=== PATIENT | female | born 1930 | race Caucasian/White ===

== ENCOUNTER 2017-05-29 06:46 | Observation (INO) | payer OTHER ==
[~2017-05-29] VITALS: Ht 160 cm; Wt 75.0 kg
[2017-05-29 06:54] VITALS: BP 152/65; PULSE 71; RESP 18; TEMP 97.6; O2SAT 97
[2017-05-29] MEDS ORDERED: LABE200T2 PO (07:02)
[2017-05-29] MEDS ORDERED: SIMV10TA PO (07:02)
[2017-05-29] MEDS ORDERED: LISI-515 PO (07:02)
[2017-05-29] MEDS ORDERED: FERR325T8 PO (07:02)
[2017-05-29] MEDS ORDERED: AMLO10TA2 PO (07:02)
[2017-05-29 07:24] LABS: AUTOMATED NEUTROPHIL # 5.6 TH/MM3 (1.8-7.7); BASOPHIL # 0.1 TH/MM3 (0-0.2); BASOPHIL % 0.5 % (0.0-2.0); EOSINOPHIL # 0.2 TH/MM3 (0-0.4); EOSINOPHIL % 1.6 % (0.0-4.0); HEMATOCRIT 35.7 % (35.0-46.0); LYMPH % 47.3 % (9.0-44.0); LYMPHOCYTE # 5.8 TH/MM3 (1.0-4.8); MEAN CELL VOLUME 88.8 FL (80.0-100.0); MEAN CORPUSCULAR HGB CONC 32.7 % (32.0-36.0); MONO % 5.1 % (0.0-8.0); NEUT % 45.5 % (16.0-70.0); PLATELET COUNT 205 TH/MM3 (150-450); RED BLOOD COUNT 4.02 MIL/MM3 (4.00-5.30); WHITE BLOOD COUNT 12.3 TH/MM3 (4.0-11.0)
[2017-05-29 07:35] LABS: HEMO FLAGS AUTO DIFF
[2017-05-29 07:39] LABS: ANION GAP 4 MEQ/L (5-15); BICARBONATE 28.9 MEQ/L (21.0-32.0); BLOOD UREA NITROGEN 9 MG/DL (7-18); CHLORIDE 108 MEQ/L (98-107); GLOMERULAR FILTRATION RATE 74 ML/MIN (>89); POTASSIUM 3.9 MEQ/L (3.5-5.1); SODIUM (NA) 141 MEQ/L (136-145)
[2017-05-29 07:44] LABS: CREATINE KINASE 89 U/L (26-192)
[2017-05-29] MEDS ORDERED: ASPIRIN 325 MG TAB PO ONE (07:45)
--- NOTE | 2017-05-29 07:46 | RADRPT ---
EXAM DATE/TIME: 05/29/2017 07:36 [place] COMPARISON: No previous studies available for comparison. INDICATIONS : Chest pain MEDICAL HISTORY : A-fib SURGICAL HISTORY : None. ENCOUNTER: Initial ACUITY: 1 day PAIN SCORE: 4/10 LOCATION: chest FINDINGS: Cardiomegaly. Clear lungs. Osseous structures are intact. CONCLUSION: Cardiomegaly. Clear lungs. Cameron Sales MD on May 29, 2017 at 7:44 Board Certified Radiologist. This report was verified electronically.
[2017-05-29 08:37] LABS: ATYPICAL LYMPHOCYTES 9 % (0-0); BANDS 1 % (0-6); EOSINOPHILS 3 % (0-4); NEUTROPHIL # MANUAL DIFF 5.7 TH/MM3 (1.8-7.7); POLYS (SEG NEUTROPHILS) 45 % (16-70); WBC DIFF SAMPLE 100
[2017-05-29 08:39] LABS: PLATELET ESTIMATE SMEAR NORMAL (NORMAL); PLATELET MORPHOLOGY NORMAL (NORMAL); SCAN/DIFF FINAL DIFF MANUAL; SMUDGE CELLS PRESENT PRESENT
[2017-05-29 10:29] VITALS: BP 172/71; PULSE 69; RESP 17; O2SAT 97
[2017-05-29 10:37] LABS: CREATINE KINASE 77 U/L (26-192)
[2017-05-29 11:18] VITALS: BP 156/69; PULSE 62; RESP 17; TEMP 98.6; O2SAT 94
--- NOTE | 2017-05-29 11:27 | PD ---
HPI Chief Complaint: Chest Pain Time Seen by Provider: 07:26 Travel History International Travel<30 days: No Contact w/Intl Traveler<30days: No Traveled to known affect area: No History of Present Illness HPI 86 F arrives with chest pain. It started about 3 AM. She arrives here at 7 AM. Location is left lower chest. No radiation. No pleuritic pain, shortness of breath or fever. Patient has multiple family members with coronary artery disease. + Hx atrial fibrillation. + HTN. No diabetes. No personal hx CAD. Pt denies similar prior episodes. She reports normal state of health lately. [facility] Past Medical History Anemia: Yes Heart Rhythm Problems: Yes High Cholesterol: Yes Hypertension: Yes Tetanus Vaccination: Unknown Influenza Vaccination: No Social History Alcohol Use: No Tobacco Use: No Substance Use: No Allergies-Medications (Allergen,Severity, Reaction): Coded Allergies: No Known Allergies (Unverified , 05/29/17) Reported Meds & Prescriptions Reported Meds & Active Scripts Active Reported Simvastatin 10 Mg Tab 10 Mg PO DAILY Labetalol (Labetalol HCl) 200 Mg Tab 200 Mg PO BID Amlodipine (Amlodipine Besylate) 10 Mg Tab 10 Mg PO DAILY Lisinopril 20 Mg Tab 20 Mg PO DAILY Ferrous Sulfate 325 Mg (65 Mg Iron) Tablet 325 Mg PO DAILY Review of Systems Except as stated in HPI: all other systems reviewed are Neg General / Constitutional: No: Fever Cardiovascular: Positive: Chest Pain or Discomfort Physical Exam Narrative GENERAL: 86 yo F, mild distress 2/2 pain and/or anxiety SKIN: Warm and dry. HEAD: Atraumatic. Normocephalic. EYES: Pupils equal and round. No scleral icterus. No injection or drainage. ENT: No nasal bleeding or discharge. Mucous membranes pink and moist. NECK: Trachea midline. No JVD. CARDIOVASCULAR: Regular rate and rhythm. RESPIRATORY: No accessory muscle use. Clear to auscultation. Breath sounds equal bilaterally. GASTROINTESTINAL: Abdomen soft, non-tender, nondistended. Hepatic and splenic margins not palpable. MUSCULOSKELETAL: Extremities without clubbing, cyanosis, or edema. No obvious deformities. No evidence DVT. NEUROLOGICAL: Awake and alert. No obvious cranial nerve deficits. Motor grossly within normal limits. Five out of 5 muscle strength in the arms and legs. Normal speech. PSYCHIATRIC: Appropriate mood and affect; insight and judgment normal. Data Data Last Documented VS Vital Signs Date Time Temp Pulse Resp B/P (MAP) Pulse Ox O2 Delivery O2 Flow Rate FiO2 05/29/17 06:54 97.6 71 18 152/65 (94) 97 Orders Orders Electrocardiogram (05/29/17 07:03) Complete Blood Count With Diff (05/29/17 07:03) Basic Metabolic Panel (Bmp) (05/29/17 07:03) Ckmb (Isoenzyme) Profile (05/29/17 07:03) Troponin I (05/29/17 07:03) Chest, Single Ap (05/29/17 07:03) Iv Access Insert/Monitor (05/29/17 07:03) Ecg Monitoring (05/29/17 07:03) Oxygen Administration (05/29/17 07:03) Oximetry (05/29/17 07:03) Aspirin (Aspirin) (05/29/17 07:45) Admit Order (Ed Use Only) (05/29/17 09:32) Labs Laboratory Tests Test 05/29/17 07:05 White Blood Count 12.3 TH/MM3 Red Blood Count 4.02 MIL/MM3 Hemoglobin 11.7 GM/DL Hematocrit 35.7 % Mean Corpuscular Volume 88.8 FL Mean Corpuscular Hemoglobin 29.0 PG Mean Corpuscular Hemoglobin Concent 32.7 % Red Cell Distribution Width 14.0 % Platelet Count 205 TH/MM3 Mean Platelet Volume 8.3 FL Neutrophils (%) (Auto) 45.5 % Lymphocytes (%) (Auto) 47.3 % Monocytes (%) (Auto) 5.1 % Eosinophils (%) (Auto) 1.6 % Basophils (%) (Auto) 0.5 % Neutrophils # (Auto) 5.6 TH/MM3 Lymphocytes # (Auto) 5.8 TH/MM3 Monocytes # (Auto) 0.6 TH/MM3 Eosinophils # (Auto) 0.2 TH/MM3 Basophils # (Auto) 0.1 TH/MM3 CBC Comment AUTO DIFF Differential Total Cells Counted 100 Neutrophils % (Manual) 45 % Band Neutrophils % 1 % Lymphocytes % 37 % Monocytes % 5 % Eosinophils % 3 % Neutrophils # (Manual) 5.7 TH/MM3 Differential Comment FINAL DIFF MANUAL Atypical Lymphocytes 9 % Smudge Cells PRESENT Platelet Estimate NORMAL Platelet Morphology Comment NORMAL Red Cell Morphology Comment NORMAL Blood Urea Nitrogen 9 MG/DL Creatinine 0.75 MG/DL Random Glucose 120 MG/DL Calcium Level 8.8 MG/DL Sodium Level 141 MEQ/L Potassium Level 3.9 MEQ/L Chloride Level 108 MEQ/L Carbon Dioxide Level 28.9 MEQ/L Anion Gap 4 MEQ/L Estimat Glomerular Filtration Rate 74 ML/MIN Total Creatine Kinase 89 U/L Troponin I LESS THAN 0.02 NG/ML MDM Medical Decision Making Medical Screen Exam Complete: Yes Emergency Medical Condition: Yes Medical Record Reviewed: Yes Differential Diagnosis EKG: atrial fbrillation, rate 59, no ischemic injury pattern Last 24 hours Impressions Chest X-Ray 05/29/17702 Signed Impressions: Service Date/Time: May 07:36 - CONCLUSION: Cardiomegaly. Clear lungs. Cameron Sales MD CBC & BMP Diagram 05/29/17 07:05 Narrative Course CBC & BMP Diagram 05/29/17 07:05 Calcium Level 8.8 Tn < 0.02 EKG: a fib, rate 59, no acute ischemia Last 24 hours Impressions Chest X-Ray 05/29/17702 Signed Impressions: Service Date/Time: May 07:36 - CONCLUSION: Cardiomegaly. Clear lungs. Cameron Sales MD [employer] protocol consider next most reasonable step for this patient. Pt agreeable with plan. Diagnosis Primary Impression: Chest pain Qualified Codes: R07.9 - Chest pain, unspecified Admitting Information Admitting Physician Requests: Jose Fong MD May 29, 2017 11:27
--- NOTE | 2017-05-29 13:33 | HHI.HP ---
[facility] Primary Care Physician Dr. Cedeno Chief Complaint Dizziness and irregular heart rate History of Present Illness 86-year-old female with history of hypertension, hyperlipidemia, and A. fib presents to emergency room for further evaluation of dizziness and her "heart not beating right." States she has not been able to sleep the last few nights. Again last evening was unable to sleep and then at 3 AM she became dizzy and felt as though her heart was not beating right. Duration 7-8 hours. Denied any chest pain, discomfort, or pressure. No associated symptoms of nausea, vomiting , shortness, or diarrhea. No precipitating or relieving factors. Reports now she feels completely fine and is requesting to be discharged home. Review of Systems General: No fatigue,weakness, fever, chills, recent illness, or change in appetite. Has been in her general state of health. Living with her sister the last 6 months, recently moved from [place], [place]. Establish with a primary care provider 2 weeks ago, Dr. Cedeno, and given a "blood thinner." Did not tack picker prescription stating "I did not want to take another pill." HEENT: No SKAGGS CV: No CP, pressure, or discomfort. No Palpitations. Dizziness has resolved. RESP: No SOB or cough. GI: No nausea, vomiting, or bowel changes. : No dysuria EXT: No lower leg edema MS: No discomfort or change in ROM NEURO: No difficulty with balance, LOC, motor/sensory deficits PSYCH: No anxiety, depression, or situational stress SKIN: No rashes, no concerning lesions Past Family Social History Allergies: Coded Allergies: No Known Allergies (Unverified , 05/29/17) Past Medical History Hypertension, hyperlipidemia, anemia, A. fib Past Surgical History Bilateral knee replacements Reported Medications Reported Meds & Active Scripts Active Reported Simvastatin 10 Mg Tab 10 Mg PO DAILY Labetalol (Labetalol HCl) 200 Mg Tab 200 Mg PO BID Amlodipine (Amlodipine Besylate) 10 Mg Tab 10 Mg PO DAILY Lisinopril 20 Mg Tab 20 Mg PO DAILY Ferrous Sulfate 325 Mg (65 Mg Iron) Tablet 325 Mg PO DAILY Family History Sister-cardiac stent at age 60, Sister age 74 blot clot, x3 brothers from CAD at ages 60, 69, 78. Both parents from heart failure. Social History Known hypertension and hyperlipidemia. No known diabetes or personal coronary artery disease. Lifelong nonsmoker. Denies any alcohol. Lives with sister. Moved from [place], [place] months ago. Past Cardiac testing Chemical stress test "years ago." Physical Exam Vital Signs Vital Signs Date Time Temp Pulse Resp B/P (MAP) Pulse Ox O2 Delivery O2 Flow Rate FiO2 05/29/17 11:18 98.6 62 17 156/69 (98) 94 05/29/17 10:29 69 17 172/71 (104) 97 Room Air 05/29/17 06:54 97.6 71 18 152/65 (94) 97 Physical Exam GENERAL: Alert WN, WD, NAD, pleasant, elderly female HEAD: NC, AC CV: Regular irregular rate, without murmur, rub, gallop, no JVD, S1-S2 no S3- S4. RESP: Clear lungs throughout bilateral, no crackles, wheeze, rhonchi, symmetrical chest rise, nonlabored, able to speak in full sentences ABD: Soft, NT, ND, no masses, positive bowel tones EXT: Pulses +24, no dependent edema MS: Normal tone 4 extremities, nontender, no obvious deformities, full range of motion NEURO: CN II through CN XII grossly intact, motor strength 5/5 PSYCH: A+Ox3, forgetfulness noted, pleasant affect, appropriate speech, appropriate mood and affect, insight and judgment SKIN: Normal turgor, normal texture, no lesions, no rashes Laboratory Laboratory Tests Test 05/29/17 07:05 05/29/17 10:00 White Blood Count 12.3 Red Blood Count 4.02 Hemoglobin 11.7 Hematocrit 35.7 Mean Corpuscular Volume 88.8 Mean Corpuscular Hemoglobin 29.0 Mean Corpuscular Hemoglobin Concent 32.7 Red Cell Distribution Width 14.0 Platelet Count 205 Mean Platelet Volume 8.3 Neutrophils (%) (Auto) 45.5 Lymphocytes (%) (Auto) 47.3 Monocytes (%) (Auto) 5.1 Eosinophils (%) (Auto) 1.6 Basophils (%) (Auto) 0.5 Neutrophils # (Auto) 5.6 Lymphocytes # (Auto) 5.8 Monocytes # (Auto) 0.6 Eosinophils # (Auto) 0.2 Basophils # (Auto) 0.1 CBC Comment AUTO DIFF Differential Total Cells Counted 100 Neutrophils % (Manual) 45 Band Neutrophils % 1 Lymphocytes % 37 Monocytes % 5 Eosinophils % 3 Neutrophils # (Manual) 5.7 Differential Comment FINAL DIFF MANUAL Atypical Lymphocytes 9 Smudge Cells PRESENT Platelet Estimate NORMAL Platelet Morphology Comment NORMAL Red Cell Morphology Comment NORMAL Blood Urea Nitrogen 9 Creatinine 0.75 Random Glucose 120 Calcium Level 8.8 Sodium Level 141 Potassium Level 3.9 Chloride Level 108 Carbon Dioxide Level 28.9 Anion Gap 4 Estimat Glomerular Filtration Rate 74 Total Creatine Kinase 89 77 Troponin I LESS THAN 0.02 LESS THAN 0.02 Result Diagram: 05/29/1770405/29/17704 Imaging Last Impressions Chest X-Ray 05/29/17702 Signed Impressions: Service Date/Time: May 07:36 - CONCLUSION: Cardiomegaly. Clear lungs. Cameron Sales MD Course EKG A. fib, no st t segment changes Caprini VTE Risk Assessment Caprini VTE Risk Assessment: Mod/High Risk (score >= 2) Caprini Risk Assessment Model Point Value = 1 Point Value = 2 Point Value = 3 Point Value = 5 Age 41-60 Minor surgery BMI > 25 kg/m2 Swollen legs Varicose veins or History of unexplained or recurrent spontaneous Oral contraceptives or hormone replacement Sepsis (< 1 month) Serious lung disease, including pneumonia (< 1 month) Abnormal pulmonary function Acute myocardial infarction Congestive heart failure (< 1 month) History of inflammatory bowel disease Medical patient at bed rest Age 61-74 Arthroscopic surgery Major open surgery (> 45 min) Laparoscopic surgery (> 45 min) Malignancy Confined to bed (> 72 hours) Immobilizing plaster cast Central venous access Age >= 75 History of VTE Family history of VTE Factor V Leiden Prothrombin [id number] Lupus anticoagulant Anticardiolipin antibodies Elevated serum homocysteine Heparin-induced thrombocytopenia Other congenital or acquired thrombophilia Stroke (< 1 month) Elective arthroplasty Hip, pelvis, or leg fracture Acute spinal cord injury (< 1 month) Prophylaxis Regimen Total Risk Factor Score Risk Level Prophylaxis Regimen 0-1 Low Early ambulation 2 Moderate Order ONE of the following: *Sequential Compression Device (SCD) *Heparin 5000 units SQ BID 3-4 Higher Order ONE of the following medications: *Heparin 5000 units SQ TID *Enoxaparin/Lovenox 40 mg SQ daily (WT < 150 kg, CrCl > 30 mL/min) *Enoxaparin/Lovenox 30 mg SQ daily (WT < 150 kg, CrCl > 10-29 mL/min) *Enoxaparin/Lovenox 30 mg SQ BID (WT < 150 kg, CrCl > 30 mL/min) AND/OR *Sequential Compression Device (SCD) 5 or more Highest Order ONE of the following medications: *Heparin 5000 units SQ TID (Preferred with Epidurals) *Enoxaparin/Lovenox 40 mg SQ daily (WT < 150 kg, CrCl > 30 mL/min) *Enoxaparin/Lovenox 30 mg SQ daily (WT < 150 kg, CrCl > 10-29 mL/min) *Enoxaparin/Lovenox 30 mg SQ BID (WT < 150 kg, CrCl > 30 mL/min) AND *Sequential Compression Device (SCD) Assessment and Plan Assessment and Plan #1 Dizziness- Admitted to chest pain center. Ruled out with 3 sets of EKGs, cardiac enzymes, and monitored overnight. Seen and evaluated by Dr. Fuad Ocasio. Dizziness and feeling of irregular heart beat has resolved, continues to be chest pain free. No further cardiac testing required. Known history of afib. Discharge home this afternoon. Follow up PCP. Return to ER as needed for any further concerns. #2 History of A. fib-encouraged her to start taking anticoagulation as prescribed by her primary care provider. Telemetry reviewed, no rapid ventricular response seen. Education provided on risk of stroke with not taking anticoagulation therapy This is also been discussed with her sister at bedside. They're both agreeable to plan of care and report they will tack picker medication at the pharmacy on the way home. Continue labetalol. #3 Hypertension-continue amlodipine and lisinopril #4 Hyperlipidemia-continue simvastatin Batool Hernandez May 29, 2017 13:33
[2017-05-29] MEDS ORDERED: LABETALOL HCL 200 MG TAB PO SCH (15:00)
[2017-05-29] MEDS ORDERED: FERROUS SULFATE 325 MG (65 MG ELEMENTAL IRON) TAB PO SCH (15:00)
[2017-05-29] MEDS ORDERED: LISINOPRIL 20 MG TAB PO SCH (15:00)
[2017-05-29 15:02] VITALS: BP 188/75; PULSE 70; RESP 20; TEMP 99; O2SAT 97
--- NOTE | 2017-05-29 15:02 | HHI.DCPOC ---
Discharge Care Plan Diagnosis: (1) Atypical chest pain Goals to Promote Your Health * To prevent worsening of your condition and complications * To maintain your health at the optimal level Directions to Meet Your Goals Take your medications as prescribed Follow your dietary instruction Follow activity as directed Keep your appointments as scheduled Take your immunizations and boosters as scheduled If your symptoms worsen call your PCP, if no PCP go to Urgent Care Center or Emergency Room Smoking is Dangerous to Your Health. Avoid second hand smoke Call the 24-hour hour crisis hotline for domestic abuse at [place] Hernandez May 29, 2017 15:02
--- NOTE | 2017-05-29 16:59 | EKG ---
Date Performed: 05/29/2017 Time Performed: 10:08:26 PTAGE: 86 years EKG: ATRIAL FIBRILLATION WITH SLOW VENTRICULAR RESPONSE LOW QRS VOLTAGE IN PRECORDIAL LEADS POSS IBLE RIGHT VENTRICULAR CONDUCTION DELAY ABNORMAL RHYTHM ECG Since PREVIOUS TRACING , no significant change noted DOCTOR: Mary Prince Interpretating Date/Time 05/29/2017 16:58:35
--- NOTE | 2017-05-29 17:15 | EKG ---
Date Performed: 05/29/2017 Time Performed: 07:04:53 PTAGE: 86 years EKG: ATRIAL FIBRILLATION LOW QRS VOLTAGE IN PRECORDIAL LEADS INCOMPLETE RIGHT BUNDLE BRANCH BLOC K ABNORMAL RHYTHM ECG ARTIFACT NO PREVIOUS TRACING DOCTOR: Mary Prince Interpretating Date/Time 05/29/2017 17:15:00
[2017-05-30] MEDS ORDERED: PRAVASTATIN SOD 20 MG TAB PO SCH (09:00)
--- NOTE | 2017-05-30 13:59 | EKG ---
Date Performed: 05/29/2017 Time Performed: 13:00:06 PTAGE: 86 years EKG: ATRIAL FIBRILLATION LOW QRS VOLTAGE IN PRECORDIAL LEADS INCOMPLETE RIGHT BUNDLE BRANCH BLOC K ABNORMAL RHYTHM ECG INTERPRETATION BASED ON A DEFAULT AGE OF 40 YEARS NO PREVIOUS TRACING DOCTOR: Jose Clark Interpretating Date/Time 05/30/2017 13:58:13
== END 2017-05-29 15:35 | disposition home or self-care (01) ==
LOC: NEPC 06:46 → NEDA 09:34 → NEPFCDU 10:57
PROVIDERS: ADMIT Internal Medicine Cardiovascular Disease; ATTEND Internal Medicine Cardiovascular Disease
DX: R07.89 Other chest pain (principal); I48.91 Unspecified atrial fibrillation; I10 Essential (primary) hypertension; D64.9 Anemia, unspecified; E78.00 Pure hypercholesterolemia, unspecified; Z82.49 Family history of ischemic heart disease and other diseases of the circulatory system
CPT/HCPCS: 71010; 80048; 82550; 84484; 85007; 85027; 93005; 99285; G0378